=== PATIENT | male | born 1940 | race Caucasian/White ===

== ENCOUNTER 2021-01-12 07:45 | Inpatient (IN) | payer OTHER ==
[~2021-01-12] VITALS: Ht 162.6 cm; Wt 63.5 kg
[~2021-01-12 07:45] MED LIST: OMEPRAZOLE; TAMS0.4C; VITORIN PO; ZANTAC 7575 MG PO; [UNRECOGNIZED DRUG - OTHER]
[2021-01-12] MEDS ORDERED: PEPCID AC20 MG PO (10:04)
[2021-01-12] MEDS ORDERED: PROSCAR5 MG PO (10:04)
[2021-01-12] MEDS ORDERED: HUMALOG100 UNIT/2 SUBCUTANEO (14:59)
[2021-01-12] MEDS ORDERED: LANTUS SOL100 UNIT/1 SUBCUTANEO (15:00)
[2021-01-19] MEDS ORDERED: OMEPRAZOLE MAGN20 MG (11:41)
[2021-01-19] MEDS ORDERED: NORFLEX100MG (11:43)
== END 2021-01-21 09:32 | disposition home or self-care (01) | DRG 670 ==
LOC: SURH 01-19 07:45 → O/R 01-19 08:20 → SURH 01-19 09:00
PROVIDERS: ADMIT Urology; ATTEND Urology
PROC: 0TBB8ZX Excision of Bladder, Via Natural or Artificial Opening Endoscopic, Diagnostic (ICD-10-PCS; principal; 2021-01-19 11:15)
DX: C68.8 Malignant neoplasm of overlapping sites of urinary organs (principal); E11.9 Type 2 diabetes mellitus without complications